=== PATIENT | female | born 1980 | race Caucasian/White ===

== ENCOUNTER 2018-08-13 05:30 | Inpatient (IN) ==
[2018-08-13] MEDS ORDERED: Metoclopramide 10 MG/2 ML VIAL IVP PRN ×2 (05:42→11:24)
[2018-08-13] MEDS ORDERED: Famotidine 20 MG/2 ML VIAL IVP PRN (05:42)
[2018-08-13] MEDS ORDERED: Naloxone 0.4 MG/ML INJ IVP PRN (05:42)
[2018-08-13] MEDS ORDERED: Ringers Solution, Lactated 1,000 ML IVC ONE (05:44)
[2018-08-13] MEDS ORDERED: Ringers Solution, Lactated 1,000 ML IVC SCH ×2 (05:45→11:24)
[2018-08-13] MEDS ORDERED: *HR* Phenylephrine 10 MG/ML VIAL ONE (06:27)
[2018-08-13 06:29] LABS: Basophils % 0.2 %; Eosinophils % 0.2 %; Hematocrit 35.2 % (35.3-44.9); Hemoglobin 11.9 g/dL (11.5-15.4); Immature Granulocytes % 1.4 % (0-4); Immature Platelets 5.1 % (1.1-6.1); Lymphocytes # 2.6 K/mcL (0.6-4.6); Lymphocytes % 30.1 %; Mean Corpuscular HGB Conc 33.8 g/dL (31.6-35.5); Mean Corpuscular Hemoglobin 31.1 pg (28.0-33.3); Mean Corpuscular Volume 91.9 fL (83.0-100.0); Mean Platelet Volume 10.2 fL (9.4-12.4); Monocytes # 0.5 K/mcL (0.0-1.3); Neutrophils # 5.4 K/mcL (1.6-8.9); Platelet Count 302 K/mcL (140-400); Red Blood Count 3.83 M/mcL (3.82-4.97); Red Cell Distribution Width 13.8 % (11.5-14.5); Segmented Neutrophils % 62.1 %; White Blood Count 8.7 K/mcL (4.3-11.1)
--- NOTE | 2018-08-13 06:38 | Anesthesia Evaluation PreOp ---
Date of Encounter: 08/13/18 Time of Encounter: 06:30 - Past History Planned Operation: Repeat Cardiac History: Denies any Significant Hx Pulmonary History: Denies Any Significant HX Other Medical History: Denies Any Significant HX Anesthesia History: No Prior Anesthetic Complications, Past Anesthesia (C- Section) : Yes (39 weeks 1 day) Alcohol Use: occasionally Drug use: none Medications and Allergies Chewable Iron 30 mg Tablet 1 mg PO DAILY 05/26/18 [History] One Tablet 1 mg PO DAILY 05/26/18 [History] Allergy/AdvReac Type Severity Reaction Status Date / Time No Known Allergies Allergy Verified 08/13/18 05:53 - Meds/Allergy Pre-op Review Medications Reviewed: Yes Allergies Reviewed: Yes Beta Blockers on Current Med List: No Anesthesia Results - Labs 08/13/18 05:43 Laboratory Tests 03/10/18 08/13/18 02:53 05:43 Hgb 11.9 Hct 35.2 L Plt Count 302 Sodium 136 Potassium 3.5 Anesthesia Exam O2 Sat Height 1.6 m Weight 90.265 kg Height: 5'3 Weight: 199 lbs NPO (# of Hours): MN Pain Scale: 0 - HEENT Pupil (Motor): Pupils equal, EOMI Mallampati: II Teeth: Normal Oral Opening: Greater than 3 - FISH BUTCHER LOC: Oriented FISH BUTCHER Motor: Normal RUE, Normal LUE, Normal RLE, Normal LLE, Normal Face FISH BUTCHER Sensory: Normal: RUE, LUE, RLE, LLE, Face - Cardiac Rhythm: Regular Murmur: None JVD: No Carotid Bruit: No - Pulmonary Breath Sounds: bilateral Clear Respiratory Effort: Symmetrical Anesthesia Assess/Plan ASA Score: 2 Level of consciousness: Cooperative, Oriented Anesthetic Plan: Spinal Autologous Blood: No Monitoring Plan: Standard Monitors Recovery Plan: PACU (Discussed SAB, possible GA, agrees to proceed)
[2018-08-13 06:39] LABS: Amphetamine Screen,Urine Negative ng/mL (Cutoff=1000); Barbiturate Screen,Urine Negative ng/mL (Cutoff=200)
[2018-08-13] MEDS ORDERED: *HR* OxyCODONE/APAP 5/325 TABLET PO PRN (06:39)
[2018-08-13] MEDS ORDERED: Ondansetron 4 MG/2 ML VIAL IVP PRN ×2 (06:39→11:24)
[2018-08-13] MEDS ORDERED: Ibuprofen 400 MG TABLET PO PRN (06:39)
[2018-08-13 06:40] LABS: Benzodiazepines Screen,Urine Negative ng/mL (Cutoff=300); Cannabinoid Screen,Urine Negative ng/mL (Cutoff = 50); Cocaine Screen,Urine Negative ng/mL (Cutoff= 300); Opiate Screen,Urine Negative ng/mL (Cutoff=300); Phencyclidine Screen,Urine Negative ng/mL (Cutoff=25)
[2018-08-13] MEDS ORDERED: *HR* Morphine Sulfate/PF 10 MG/10 ML AMPUL ONE (07:12)
[2018-08-13] MEDS ORDERED: EPHEDrine 50 MG/ML VIAL ONE (07:12)
[2018-08-13] MEDS ORDERED: *HR* FentaNYL (PF) 100 MCG/2 ML VIAL ONE (07:12)
[2018-08-13] MEDS ORDERED: Water for inj. (sterile) 10 ML ONE (07:13)
[2018-08-13] MEDS ORDERED: *HR* Oxytocin 10 UNIT/ML VIAL IM ONE ×2 (07:14→08:07)
[2018-08-13] MEDS ORDERED: Ringers Solution, Lactated 1,000 ML ONE (07:16)
--- NOTE | 2018-08-13 07:18 | OB/GYN History & Physical ---
Date of Encounter: 08/13/18 Time of Encounter: 07:15 Assessment and Plan (1) with IUD in place, antepartum Current visit: No Status: Acute (2) 39 weeks gestation of Current visit: Yes Status: Acute (3) AMA (advanced maternal age) multigravida 35+ Current visit: No Status: Acute Qualifiers: Trimester: second trimester Qualified Code(s): O09.522 - Supervision of elderly multigravida, second trimester History of Present Illness Chief complaint: repeat HPI: Ms. Teran is a 37 year old female who presents today for scheduled repeat section. She is doing well. She is having no complaints of any kind today. She has an IUD in place, which is been there since entire . She has no drug allergies. She is currently on vitamins and iron. She has no chronic medical conditions. Surgical history includes 3 previous sections, femoral hernia repair at age 6, arthroscopy left knee and excision right helix 2. She has no history of abnormal Pap smears, STDs or pelvic infections. Socially she denies tobacco, alcohol, illicit drug use. Family history significant for a maternal grandfather with metastatic lung disease, there is a family history of heart disease, diabetes and hypertension. Obstetric history significant for 3 term deliveries via section. Past Med Surg Social Fam HX - Past Medical History Medical history: no medical history Psychiatric history: no psych history - Past Surgical History Surgical History: Additional surgical history: hernia operation at 6, knee scope at 15 - Social History Smoking Status: Never smoker Alcohol use: occasionally Drug use: none - Family History Mother Name: 60 Living Status: Still Living Hx Family Cardiac Disorders: No Hx Family Respiratory Disorders: No Hx Family Cancer: No Hx Family GI Disorders: No Hx Family Genitourinary Disorders: No Hx Family Endocrine Disorder: No Hx Family Musculoskeletal Disorders: No Hx Family Neuromuscular Disorders: No Hx Family Neurologic Disorders: No Hx Family HEENT Disorders: No Hx Family Autoimmune Disorders: No Hx Family Reproductive Disorders: No Hx Family Psychosocial Disorders: No Hx Family Medical Disorders: No Obstetrical History - Pregnancies : 4 Para: 3 Term: 3 Livin Medications and Allergies Chewable Iron 30 mg Tablet 1 mg PO DAILY 05/26/18 [History] One Tablet 1 mg PO DAILY 05/26/18 [History] Allergy/AdvReac Type Severity Reaction Status Date / Time No Known Allergies Allergy Verified 08/13/18 05:53 Review of System OB All systems PM: reviewed and no additional remarkable complaints except as stated Exam - Constitutional Constitutional: well developed, well nourished, no acute distress, average body habitus - HEENT HEENT: EOMI, PERRL, Normocephaly - Neck Neck exam: full ROM - Lungs Respiratory exam: CTAB - Cardiovascular Cardiovascular exam: RRR - Abdomen Abdomen: Present: bowel sounds normal, gravid, non tender - Extremities Extremities exam: full ROM - Vagina Vagina: Present: normal moisture - Cervix Dilation: 0 Effacement: 0 Station: -3 - Uterus Uterus exam: Present: normal size Results Result Diagrams: 08/13/18 05:43 Abnormal lab results Hct 35.2 % (35.3-44.9) L 08/13/18 05:43 All other labs normal.
--- NOTE | 2018-08-13 08:27 | OB/GYN Procedure Note ---
Section - Date of procedure: 08/13/18 Preop diagnosis: desires repeat Post-op diagnosis: other (removal of IUD) Procedure: repeat low transverse, other (removal of IUD) Surgeon: Kar Soto Blood Loss: 500 Was there an resident programs assistant present: Yes Exhibits Manager: Nuvia Link Anesthesiologist: Marco Gautam Crab Butcher: Sofie Benito Anesthesia Type: Spinal section complications: none Disposition: PACU Specimens: Placenta - (s) A Delivery Date: 08/13/18 Delivery Time: 07:53 Presentation: vertex Position: OA Route of delivery: other Gender: Male Viability: Viable Pounds: 9 Ounces: 6 Gram Weight: 4.254 kg at 1 minute: 8 at 5 minutes: 9 Shoulder Dystocia: not encountered Specimens collected: cord blood Placenta: spontaneous Cord: 3 umbilical vessels
--- NOTE | 2018-08-13 08:31 | Event Note ---
Date of Encounter: 08/13/18 Time of Encounter: 08:28 section After informed consent was obtained this patient was taken back to the operating room with an IV in place. She was given spinal anesthesia she was then prepped and draped in the usual sterile fashion. Once adequate analgesia was achieved a Pfannenstiel incision was made. Was carried sharply through the subtenons fatty tissue until the fascial layers reached. The fascia was then nicked in the midline and incised bilaterally with Worthington scissors. It was then dissected vertically for adequate exposure. Rectus abdominis musculature is and midline. The peritoneum was sharply entered. A bladder blade was placed at the inferior margin incision. The bladder flap was then developed. Bladder blade was placed over the bladder flap and a low transverse incision was then made in lower uterine segment. Fluid was noted be clear. The incision was bluntly extended. 's that was then delivered. There was difficulty getting the baby out of the uterus. A Kiwi was brought in. Was placed on the head and the 's head popped out. There was no pull performed. The rest the infant was then delivered. Infant cried immediately upon delivery. The cord was clamped cut. The infant was then passed to nursing in attendance. Cord blood was o btained. The placenta was then delivered via uterine lavage and massage. The uterus is delivered. The uterus was then examined. There was no extension of the incision. After lavage was once again performed the incision was closed with 0 Vicryl suture running locking fashion. One [id number] was placed for final hemostasis. The uterus was replaced the pelvic cavity. The pelvic cavity was then rinsed thoroughly with sterile water 2. C no bleeding the procedure was terminated. Sponge, needle, [place] counts correct 2. The fascia was then closed the Vicryl suture running nonlocking fashion. The suprafascial region was rinsed thoroughly with sterile water 2 all bleeders cauterized. The skin was closed rebecca. Patient delivered a male weight was 9 lbs. 6 oz. 4245 g. Apgars are 8 at 1 minute and 9 at 5 minutes. Estimated blood loss 500 mL.
[2018-08-13] MEDS ORDERED: *HR* OxyCODONE Immed Rel 5 MG TABLET PO PRN (08:51)
[2018-08-13] MEDS ORDERED: *HR* HYDROmorphone (PF) 1 MG/ML SYRINGE IVP PRN (08:51)
[2018-08-13] MEDS ORDERED: *HR* Promethazine 25 MG/ML VIAL IVP PRN (08:51)
[2018-08-13] MEDS ORDERED: Acetaminophen IV 1,000 MG/100 ML INFUS..BTL IVPB ONE (08:51)
[2018-08-13] MEDS ORDERED: Ondansetron 4 MG/2 ML VIAL IVP ONE (08:51)
[2018-08-13] MEDS ORDERED: *HR* Labetalol 20 MG/4 ML SYRINGE IVP PRN (08:51)
[2018-08-13] MEDS ORDERED: Sennosides 8.6 MG TABLET PO PRN (11:24)
[2018-08-13] MEDS ORDERED: Oxytocin 20 units/ LR 1000 mL 20 UNIT/1,000 ML BAG IVC SCH (11:24)
[2018-08-13] MEDS ORDERED: Simethicone 80 MG TAB.CHEW PO PRN (11:24)
--- NOTE | 2018-08-13 13:34 | Anesthesia Evaluation Post Op ---
Date of Encounter: 08/13/18 Time of Encounter: 10:00 - Vital Signs Vital Signs: VSS throughout PACU stay. - Lungs Lungs: Clear Ascult./Percussion - Airway Airway: Non-obstructed - Cardiovascular Regular Rate - Mental Status Mental Status: Alert & Oriented, Answers Appropriately - Pain Pain Scale: 0 Pain Scale used: Numeric (1 - 10) - Nausea Vomiting Nausea Vomiting: Not Present - Hydration Hydration: NPO, Barker catheter - Discharge PostOp Status: Transfer Patient to floor
[2018-08-13] MEDS: *HR* OxyCODONE/APAP 5/325 TABLET PO PRN (13:59)
[2018-08-14] MEDS: Ibuprofen 600 MG TABLET PO PRN ×3 (01:31→17:54)
--- NOTE | 2018-08-14 08:43 | OB/GYN Progress Note ---
Date of Encounter: 08/14/18 Time of Encounter: 08:41 - Assessment and Plan (1) Status post repeat low transverse section Current Visit: Yes Status: Acute Meeting day 1 milestones Continue routine care Anticipate discharge home tomorrow (2) Breast feeding status of mother Current Visit: Yes Status: Acute consult when necessary Subjective - Subjective Principal diagnosis: s/p RLTCS Interval history: Feeling well. Out of bed without dizziness. Some abdominal discomfort-using binder. Cramping minimal, using ibuprofen and Percocet. every 2- 3 hours. Some nipple soreness. Voiding without difficulty. Passing flatus, no BM yet. Tolerating clear liquid diet. Patient reports: appetite normal, voiding normally, pain well controlled, ambulating normally [place]: doing well, nursing well Objective - Vital Signs Latest vital signs: Vital Signs Temp Pulse Pulse Resp BP Pulse Ox 08/14/18 08:20 14 08/14/18 07:40 97.7 F 77 16 107/65 99 08/14/18 03:33 98.1 F 76 14 95/60 98 08/13/18 23:56 98.3 F 94 16 107/65 100 08/13/18 19:19 97.7 F 78 15 103/70 99 08/13/18 17:02 97.9 F 80 80 20 117/72 98 08/13/18 13:50 97.6 F 79 20 120/72 08/13/18 12:50 97.5 F L 83 16 116/67 99 08/13/18 11:50 97.7 F 81 20 117/73 99 08/13/18 11:20 98.0 F 78 20 116/66 99 08/13/18 10:50 97.1 F L 73 73 16 117/70 100 Intake and Output 08/13/18 08/14/18 08/14/18 23:59 07:59 15:59 Intake Total 700 / 700 350 / 350 Output Total 1575 / 1775 1100 / 1100 Balance -875 / -1075 -750 / -750 Intake: IV Fluids 100 / 100 100 / 100 Ancef 2,000 MG In 0.9 % Sodium 100 / 100 100 / 100 Chloride 100 ML @ 200 mls/hr IVPB Q8HR [facility] Rx#:[id number] Oral 600 / 600 250 / 250 Output: Catheter 1575 / 1775 1100 / 1100 Other: Weight 84.686 kg Patient Weight 08/14/18 23:59 Weight 84.686 kg - Exam Lungs: bilateral: normal Chest: Normal S1, Normal S2 Extremities: Present: normal Abdomen: Present: normal appearance, soft Incision: Present: normal, dry, dressed Uterus: Present: normal, firm Fundal Height: 0 (midline and firm)
[2018-08-14 08:58] LABS: Basophils % 0.1 %; Eosinophils % 0.3 %; Hematocrit 28.3 % (35.3-44.9); Hemoglobin 9.3 g/dL (11.5-15.4); Immature Granulocytes % 0.8 % (0-4); Lymphocytes # 1.5 K/mcL (0.6-4.6); Lymphocytes % 19.9 %; Mean Corpuscular HGB Conc 32.9 g/dL (31.6-35.5); Mean Corpuscular Hemoglobin 30.9 pg (28.0-33.3); Mean Platelet Volume 9.9 fL (9.4-12.4); Monocytes # 0.4 K/mcL (0.0-1.3); Monocytes % 5.6 %; Neutrophils # 5.4 K/mcL (1.6-8.9); Platelet Count 259 K/mcL (140-400); Red Blood Count 3.01 M/mcL (3.82-4.97); Red Cell Distribution Width 13.8 % (11.5-14.5); Segmented Neutrophils % 73.3 %; White Blood Count 7.3 K/mcL (4.3-11.1)
[2018-08-14] MEDS: Prenatal Vit/FA 1 EACH TABLET PO SCH (09:27)
[2018-08-14] MEDS: *HR* OxyCODONE/APAP 5/325 TABLET PO PRN (20:18)
[2018-08-15] MEDS: Ibuprofen 600 MG TABLET PO PRN (06:23)
[2018-08-15] MEDS: *HR* OxyCODONE/APAP 5/325 TABLET PO PRN (06:23)
[2018-08-15] MEDS: Prenatal Vit/FA 1 EACH TABLET PO SCH (08:55)
[2018-08-15 09:19] VITALS: BP 108/73
--- NOTE | 2018-08-15 09:47 | Discharge Summary ---
Date of Encounter: 08/15/18 Time of Encounter: 09:38 - Discharge Diagnosis (1) Status post repeat low transverse section Priority: Primary Status: Acute Comments: Patient meeting day two milestones. Pain well-controlled with prescribed medications. Voiding without difficulty, tolerating regular diet, bleeding light. No bowel movement yet. Anticipate discharge today (2) anemia Priority: Secondary Status: Acute Comments: Continue daily iron on discharge (3) Breast feeding status of mother Priority: Secondary Status: Acute Comments: support as needed Will provide breast pump prescription - Discharge Medications Prescriptions: New Breast Pump [BREAST PUMP] 1 each .ROUTE AD #1 each Docusate [Colace] 100 mg PO BID #60 capsule Ferrous Sulfate 325 mg PO 0800 #30 tablet Simethicone [Gas-X] 80 mg PO TID PRN tab.chew PRN Reason: Dyspepsia Ibuprofen [Motrin] 600 mg PO Q6HR PRN #60 tablet PRN Reason: Cramping OxyCODONE/APAP 5/325 [Percocet 5/325 MG] 1 each PO Q6H PRN 7 Days #28 tablet PRN Reason: Moderate pain 4-6 Continued One Tablet 1 mg PO DAILY Discontinued Chewable Iron 30 mg Tablet 1 mg PO DAILY Home Medications: One Tablet 1 mg PO DAILY 05/26/18 [History] Breast Pump [BREAST PUMP] 1 each .ROUTE AD #1 each 08/15/18 [Rx] Docusate [Colace] 100 mg PO BID #60 capsule 08/15/18 [Rx] Ferrous Sulfate 325 mg PO 0800 #30 tablet 08/15/18 [Rx] Ibuprofen [Motrin] 600 mg PO Q6HR PRN #60 tablet 08/15/18 [Rx] OxyCODONE/APAP 5/325 [Percocet 5/325 MG] 1 each PO Q6H PRN 7 Days #28 tablet 08/15/18 [Rx] Simethicone [Gas-X] 80 mg PO TID PRN tab.chew 08/15/18 [Rx] Allergies/Adverse Reactions: Allergy/AdvReac Type Severity Reaction Status Date / Time No Known Allergies Allergy Verified 08/13/18 05:53 Data Procedures and tests throughout hospitalization: Laboratory Tests 08/13/18 08/13/18 08/14/18 05:35 05:43 08:21 WBC 8.7 7.3 RBC 3.83 3.01 L Hgb 11.9 9.3 L D Hct 35.2 L 28.3 L MCV 91.9 94.0 MCH 31.1 30.9 MCHC 33.8 32.9 RDW 13.8 13.8 Plt Count 302 259 MPV 10.2 9.9 Immature Gran % 1.4 0.8 Seg Neutrophils % 62.1 73.3 Lymphocytes % 30.1 19.9 Monocytes % 6.0 5.6 Eosinophils % 0.2 0.3 Basophils % 0.2 0.1 Neutrophils # 5.4 5.4 Lymphocytes # 2.6 1.5 Monocytes # 0.5 0.4 Eosinophils # 0.0 0.0 Basophils # 0.0 0.0 Immature Plt Fraction 5.1 Urine Opiates Screen Negative Ur Barbiturates Screen Negative Ur Phencyclidine Scrn Negative Ur Amphetamines Screen Negative U Benzodiazepines Scrn Negative Urine Cocaine Screen Negative U Marijuana (THC) Screen Negative Ur Drug Screen Interp See Below Date of admission: 08/13/18 05:41 Primary care physician: PCP NONE Discharging clinician: Dalila Avila Anticipated date of discharge: 08/15/18 - Patient Status Disposition: Home, Self-Care Condition: Good Functional capacity at discharge: independent ambulation Overall status at discharge: patient is progressing back to baseline - Discharge Instructions Follow Up With: NONE,PCP [Primary Care Provider] - Kar Machado MD [Partnered Physician] - - Diet and Activity Activity: resume usual activities as tolerated Diet: regular diet Hospital Course Reason for admission: section Delivery: section Episiotomy: none Laceration: none Other procedures: none complications: none Discharge diagnosis: IUP at term delivered baby: male Hospital course: [facility] report reviewed by myself and appropriate. Date of procedure: 08/13/18 Preop diagnosis: desires repeat Post-op diagnosis: other (removal of IUD) Procedure: repeat low transverse, other (removal of IUD) Surgeon: Kar Machado Quantitated Blood Loss: 500 Was there an assistant restaurant general manager present: Yes Veterinary Virus Serum Inspector: Nuvia Link Anesthesiologist: Marco Gautam Asian Studies Professor: Sofie Benito Anesthesia Type: Spinal section complications: none Disposition: PACU Specimens: Placenta - (s) Infant A Delivery Date: 08/13/18 Infant Delivery Time: 07:53 Presentation: vertex Position: OA Route of delivery: other Gender: Male Viability: Viable Pounds: 9 Ounces: 6 Gram Weight: 4.254 kg at 1 minute: 8 at 5 minutes: 9 Shoulder Dystocia: not encountered Specimens collected: cord blood Placenta: spontaneous Cord: 3 umbilical vessels After informed consent was obtained this patient was taken back to the operating room with an IV in place. She was given spinal anesthesia she was then prepped and draped in the usual sterile fashion. Once adequate analgesia was achieved a Pfannenstiel incision was made. Was carried sharply through the subtenons fatty tissue until the fascial layers reached. The fascia was then nicked in the midline and incised bilaterally with Worthington scissors. It was then dissected vertically for adequate exposure. Rectus abdominis musculature is and midline. The peritoneum was sharply entered. A bladder blade was placed at the inferior margin incision. The bladder flap was then developed. Bladder blade was placed over the bladder flap and a low transverse incision was then made in lower uterine segment. Fluid was noted be clear. The incision was bluntly extended. 's that was then delivered. There was difficulty getting the baby out of the uterus. A Kiwi was brought in. Was placed on the head and the 's head popped out. There was no pull performed. The rest the infant was then delivered. cried immediately upon delivery. The cord was clamped cut. The was then passed to nursing in attendance. Cord blood was obtained. The placenta was then delivered via uterine lavage and massage. The uterus is delivered. The uterus was then examined. There was no extension of the incision. After lavage was once again performed the incision was closed with 0 Vicryl suture running locking fashion. One [id number] was placed for final hemostasis. The uterus was replaced the pelvic cavity. The pelvic cavity was then rinsed thoroughly with sterile water 2. C no bleeding the procedure was terminated. Sponge, needle, [place] counts correct 2. The fascia was then closed the Vicryl suture running nonlocking fashion. The suprafascial region was rinsed thoroughly with sterile water 2 all bleeders cauterized. The skin was closed rebecca. Patient delivered a male infant weight was 9 lbs. 6 oz. 4245 g. Apgars are 8 at 1 minute and 9 at 5 minutes. Estimated blood loss 500 mL. Time Attestation: Total time spent providing and/or coordinating discharge services: Time Spent: Less than 30 minutes - VTE Documentation of Mechanical Device: Intermittent pneumatic compression device Exam - Constitutional Vitals: Temp Pulse Resp BP Pulse Ox 98.4 F 68 16 108/73 98 08/15/18 09:06 08/15/18 09:06 08/15/18 09:06 08/15/18 09:06 08/14/18 20:19 General appearance IM: A&O X 3, no acute distress, answers questions appropriately - Respiratory Respiratory exam: Present: CTAB - Cardiovascular Cardiovascular exam IM: Present: RRR - GI/Abdominal GI/Abdominal exam IM: normal bowel sounds, soft Incision: normal, dry, intact - Rectal Rectal exam: deferred - Uterine Tone: Firm Uterus Position: 2 Fingers Below Umbilicus, Midline - Extremities Exam Extremities exam IM: Present: full ROM, normal capillary refill, normal inspection. Absent: calf tenderness - Neurological Exam Neurological exam: alert, normal gait, oriented X3
--- NOTE | 2018-08-22 11:12 | Event Note ---
Date of Encounter: 08/22/18 Time of Encounter: 11:11 During patient's section after baby was removed that was able to locate the Mirena IUD in the amniotic membranes. The IUD was removed with the placenta itself.
== END 2018-08-15 11:58 | disposition home or self-care (01) | DRG 788 ==
LOC: 1NENULAB 05:41 → 1NENUOBS 11:09
PROVIDERS: ADMIT Obstetrics & Gynecology; ATTEND Obstetrics & Gynecology